=== PATIENT | female | born 1990 ===

== ENCOUNTER 2023-01-16 05:08 | Inpatient (IN) | payer BC ==
[2023-01-16] MEDS ORDERED: Sodium Chloride 0.9% 10 ML Syringe FLUSH PRN (05:51)
[2023-01-16] MEDS ORDERED: Sodium Chloride 0.9% 2.5 ML Syringe FLUSH PRN (05:51)
[2023-01-16] MEDS ORDERED: Sodium Chloride 0.9% 20 ML SDV IV PRN (05:51)
[2023-01-16] MEDS ORDERED: Citric Acid/Sodium Citrate Solution 30 ML Cup PO ONE (05:51)
[2023-01-16] MEDS ORDERED: Oxytocin/0.9 % Sodium Chloride 30 UNIT/500 ML BAG IV SCH (06:00)
[2023-01-16] MEDS: Lactated Ringers 1,000 ML IV SCH ×2 (06:05→07:15)
[2023-01-16 06:21] LABS: HEMATOCRIT 34.6 % (37.0-47.0); MEAN CORPUSCULAR HEMOGLOBIN 30.8 pg (28.0-32.0); MEAN CORPUSCULAR HGB CONC 34.7 g/dL (32.0-36.0); MEAN CORPUSCULAR VOLUME 88.7 fL (83.0-99.0); MEAN PLATELET VOLUME 10.4 fL (9.4-12.3); PLATELET COUNT,PLT 239 K/uL (150-400); WHITE BLOOD CELL COUNT,WBC 10.54 K/uL (3.9-11.3)
[2023-01-16] MEDS ORDERED: Dexamethasone 4 MG/ML 5 ML MDV ONE (06:38)
[2023-01-16] MEDS ORDERED: Oxytocin 10 Units/1 ML SDV ONE ×2 (06:38→08:03)
[2023-01-16] MEDS ORDERED: Ketorolac 30 MG/ML SDV ONE (06:38)
[2023-01-16] MEDS ORDERED: Water For Injection, Sterile 20 ML ONE (06:39)
[2023-01-16] MEDS ORDERED: Ropivacaine 0.5% 5 MG/ML 30 ML SDV ONE (06:39)
[2023-01-16] MEDS ORDERED: Lidocaine 2% 5 ML SDV ONE (06:39)
[2023-01-16] MEDS ORDERED: Phenylephrine 1% 10 MG/ML SDV ONE (06:39)
[2023-01-16] MEDS ORDERED: ceFAZolin 1 GM Vial ONE (06:39)
[2023-01-16] MEDS ORDERED: Morphine PF 10 MG/10 ML SDV ONE (06:40)
[2023-01-16] MEDS ORDERED: fentaNYL 100 MCG/2 ML SDV ONE (06:40)
[2023-01-16] MEDS ORDERED: Ondansetron 4 MG/2 ML SDV ONE (06:44)
[2023-01-16] MEDS ORDERED: Albuterol 0.083% 2.5 MG/3 ML Neb Soln NEB PRN (07:11)
[2023-01-16] MEDS ORDERED: fentaNYL 50 MCG/ML SDV IVPUSH PRN ×2 (07:11)
[2023-01-16] MEDS ORDERED: HYDROmorphone 1 MG/ML Syringe IVPUSH PRN (07:11)
[2023-01-16] MEDS ORDERED: droPERidol 5 MG/2 ML SDV IVPUSH PRN (07:11)
[2023-01-16] MEDS ORDERED: diphenhydrAMINE 50 MG/ML SDV IVPUSH PRN ×2 (07:11→09:12)
[2023-01-16] MEDS ORDERED: Metoclopramide 10 MG/2 ML SDV IVPUSH PRN (07:11)
[2023-01-16] MEDS ORDERED: Morphine 2 MG/ML SYRINGE IVPUSH PRN (07:11)
[2023-01-16] MEDS ORDERED: Naloxone 0.4 MG/ML SDV IVPUSH PRN (07:11)
[2023-01-16] MEDS ORDERED: ePHEDrine 50 MG/ML SDV IVPUSH PRN (07:11)
[2023-01-16] MEDS ORDERED: Ondansetron 4 MG/2 ML SDV IVPUSH PRN ×3 (07:11→09:12)
[2023-01-16] MEDS ORDERED: Acetaminophen/oxyCODONE 325-5 MG Tab PO PRN ×3 (07:11→09:12)
[2023-01-16] MEDS ORDERED: Tranexamic Acid 1,000 MG/10 ML Vial ONE (08:39)
[2023-01-16] MEDS ORDERED: Bisacodyl 10 MG Supp RECTAL PRN (09:12)
[2023-01-16] MEDS ORDERED: Lanolin 100% Cream 7 GM Tube TOP PRN (09:12)
[2023-01-16] MEDS ORDERED: Methylergonovine 0.2 MG/1 ML Amp IM PRN (09:12)
[2023-01-16] MEDS ORDERED: Oxytocin 10 Units/1 ML SDV IM PRN (09:12)
[2023-01-16] MEDS ORDERED: Misoprostol 200 MCG Tab RECTAL PRN (09:12)
[2023-01-16] MEDS ORDERED: Phenylephrine HCl 0.5 MG/5 ML AMP ONE (09:13)
[2023-01-16] MEDS: Ketorolac 30 MG/ML SDV IVPUSH SCH ×3 (09:15→21:11)
[2023-01-16] MEDS ORDERED: Lactated Ringers 1,000 ML IV SCH (09:15)
[2023-01-16 09:41] LABS: PH,UMBILICAL ARTERIAL 7.165 (7.18-7.38); PH,UMBILICAL VENOUS 7.228 (7.25-7.45)
[2023-01-16] MEDS: Simethicone 80 MG Tab.Chew PO SCH ×2 (18:01→18:02)
[2023-01-16] MEDS: ceFAZolin 1 GM in Sodium Chloride 0.9% 50 ML IV SCH (18:02)
[2023-01-16] MEDS: Docusate Sodium 100 MG Cap PO SCH (21:11)
[2023-01-17] MEDS: ceFAZolin 1 GM in Sodium Chloride 0.9% 50 ML IV SCH ×3 (01:29→17:10)
[2023-01-17] MEDS: Simethicone 80 MG Tab.Chew PO SCH ×4 (01:30→18:37)
[2023-01-17] MEDS: Ketorolac 30 MG/ML SDV IVPUSH SCH ×2 (03:58→09:30)
[2023-01-17 06:34] LABS: HEMATOCRIT 23.6 % (37.0-47.0); HEMOGLOBIN 8.4 g/dL (12.0-16.0)
[2023-01-17] MEDS: Docusate Sodium 100 MG Cap PO SCH ×2 (09:30→21:08)
[2023-01-17] MEDS: Acetaminophen 325 MG Tab PO PRN ×2 (14:54→23:05)
[2023-01-17] MEDS: Ibuprofen 800 MG Tab PO PRN (16:00)
[2023-01-17] MEDS: oxyCODONE 5 MG Tab PO PRN ×2 (17:08→21:09)
[2023-01-18] MEDS: Simethicone 80 MG Tab.Chew PO SCH ×3 (00:37→12:14)
[2023-01-18] MEDS: Ibuprofen 800 MG Tab PO PRN ×2 (00:37→09:55)
[2023-01-18] MEDS: oxyCODONE 5 MG Tab PO PRN ×2 (05:17→10:56)
[2023-01-18] MEDS: Acetaminophen 325 MG Tab PO PRN (07:50)
[2023-01-18] MEDS: Docusate Sodium 100 MG Cap PO SCH (09:18)
== END 2023-01-18 16:45 | disposition home or self-care (01) | DRG 540 ==
LOC: MW.OB 05:08
PROVIDERS: ADMIT Obstetrics & Gynecology; ATTEND Obstetrics & Gynecology
PROC: 10D00Z1 Extraction of Products of Conception, Low, Open Approach (ICD-10-PCS; principal; 2023-01-16)
PROC: 0WQF0ZZ Repair Abdominal Wall, Open Approach (ICD-10-PCS; 2023-01-16)
DX: O34.211 Maternal care for low transverse scar from previous cesarean delivery (principal); Z3A.39 39 weeks gestation of pregnancy; Z37.0 Single live birth; O99.344 Other mental disorders complicating childbirth; O69.81X0 Labor and delivery complicated by cord around neck, without compression, not applicable or unspecified; F32.A Depression, unspecified; F41.9 Anxiety disorder, unspecified
CPT/HCPCS: 36415; 59025; 82803; 85014; 85018; 85027; 86592; 86850; 86900; 86901; A9270-GY; J0131; J0690; J1100; J1885; J2274; J2371; J2405; J2590; J2795; J3010; J3490; J7120